=== PATIENT | male | born 1980 | race Caucasian/White ===

== ENCOUNTER 2025-02-18 08:51 | Emergency (ER) | payer OTHER ==
[~2025-02-18] VITALS: Ht 188 cm; Wt 102.7 kg
[2025-02-18] MEDS ORDERED: SODIUM CHLORIDE 0.9% 1,000 ML IV PRN (09:30)
[2025-02-18 09:34] LABS: BASOPHILS 0.3 % (0.2-1.2); EOSINOPHILS 1.2 % (0.8-7.0); LYMPHOCYTES 22.5 % (21.8-53.1); MCH 30.1 PG (25.7-32.2); MCHC 33.8 g/dL (32.3-36.5); MCV 89.2 fL (79.0-92.2); MONOCYTES 5.7 % (5.3-12.2); NEUTROPHILS 70.0 % (34.0-67.9); RBC 5.91 M/uL (4.63-6.08)
[2025-02-18 09:53] LABS: ALT (SGPT) 27.0 U/L (14-59); AST (SGOT) 18.0 U/L (15-37); GLOMERULAR FILTRATION RATE,EST 82.0 mL/min (>60); PROTEIN, TOTAL 8.1 g/dL (6.4-8.2); UREA NITROGEN 20.0 mg/dL (7-18)
[2025-02-18] MEDS ORDERED: ONDANSETRON ODT4 MG PO (10:07)
[2025-02-18 10:20] VITALS: BP 127/93
== END 2025-02-18 10:14 | disposition home or self-care (01) ==
LOC: ED 08:51
PROVIDERS: Emergency Medicine
DX: R11.2 Nausea with vomiting, unspecified (principal); R53.83 Other fatigue; R53.1 Weakness; R63.0 Anorexia; T50.995A Adverse effect of other drugs, medicaments and biological substances, initial encounter; Z68.29 Body mass index [BMI] 29.0-29.9, adult
CPT/HCPCS: 36415; 80053; 83690; 85025; 96374; 99284-25; J2405; J7030